=== PATIENT | female | born 1970 | race Caucasian/White ===

== ENCOUNTER 2018-12-12 14:33 | Emergency (ER) | payer MEDICAID ==
[~2018-12-12] VITALS: Ht 162.6 cm; Wt 89.8 kg
--- NOTE | 2018-12-12 15:57 | NUR ---
ZOE AVILA AT BEDSIDE FOR EVAL.
[2018-12-12] MEDS ORDERED: PIPERACILLIN /TAZOBACTAM 3.375 G in IV D5W 50 ML IV ONE (16:00)
--- NOTE | 2018-12-12 17:44 | NUR ---
IV removed. Catheter intact and site benign. Pressure and 4x4 applied to site. No bleeding noted.Patient discharged to home in stable condition. Written and verbal after care instructions given. Patient verbalizes understanding of instruction.
[2018-12-12 17:46] VITALS: BP 124/66
== END 2018-12-12 17:47 | disposition home or self-care (01) ==
LOC: ER 14:37
DX: S61.451A Open bite of right hand, initial encounter (principal); L03.113 Cellulitis of right upper limb; W54.0XXA Bitten by dog, initial encounter; Y93.89 Activity, other specified; Y92.89 Other specified places as the place of occurrence of the external cause; Y99.8 Other external cause status
CPT/HCPCS: 96365; 99283; J2543; J7060

== ENCOUNTER 2023-07-11 14:06 | Emergency (ER) | payer MEDICAID, OTHER ==
[~2023-07-11] VITALS: Ht 162.6 cm; Wt 66.7 kg
[2023-07-11 14:47] VITALS: BP 169/99; TEMP 98.1
[2023-07-11 16:49] VITALS: O2SAT 99
== END 2023-07-11 16:50 | disposition home or self-care (01) ==
LOC: ER 14:50
DX: S93.502A Unspecified sprain of left great toe, initial encounter (principal); S90.32XA Contusion of left foot, initial encounter; W22.8XXA Striking against or struck by other objects, initial encounter; Y93.89 Activity, other specified; Y92.89 Other specified places as the place of occurrence of the external cause; Y99.8 Other external cause status
CPT/HCPCS: 73630-TC